=== PATIENT | male | born 1955 | race Caucasian/White ===

== ENCOUNTER 2019-03-13 09:22 | Day surgery (SDC) | payer MEDICARE, BC, OTHER ==
[2019-03-13] MEDS: LACTATED RINGER'S 1,000 ML IV (10:57)
[2019-03-13] MEDS: ACETAMINOPHEN 500 MG TAB PO (10:57)
[2019-03-13] MEDS ORDERED: ONDANSETRON 4 MG INJ (10:58)
[2019-03-13] MEDS ORDERED: ROCURONIUM 50 MG INJ (10:58)
[2019-03-13] MEDS ORDERED: MIDAZOLAM 1 MG/ML 2 ML INJ (10:58)
[2019-03-13] MEDS ORDERED: DEXAMETHASONE 4 MG/ML 5 ML INJ (10:58)
[2019-03-13] MEDS ORDERED: LIDOCAINE 2% (SDV) 5 ML INJ (10:58)
[2019-03-13] MEDS ORDERED: FENTAnyl 50 MCG/ML VIAL (10:58)
[2019-03-13] MEDS ORDERED: FAMOTIDINE 20 MG INJ (10:59)
[2019-03-13] MEDS ORDERED: DESFLURANE 15 MIN (11:00)
[2019-03-13] MEDS ORDERED: CEFAZOLIN 1 GM INJ (11:00)
[2019-03-13] MEDS ORDERED: PROPOFOL 200 MG INJ (11:00)
[2019-03-13] MEDS ORDERED: DIPHENHYDRAMINE 50 MG INJ IV (12:00)
[2019-03-13] MEDS ORDERED: hydrALAzine 20 MG INJ IV (12:00)
[2019-03-13] MEDS ORDERED: ALBUTEROL 0.083% (NEB) 2.5 MG/3 ML AMP HHN (12:00)
[2019-03-13] MEDS ORDERED: FENTAnyl 50 MCG/ML VIAL IV ×2 (12:00)
[2019-03-13] MEDS ORDERED: ONDANSETRON 4 MG INJ IV (12:00)
[2019-03-13] MEDS ORDERED: LABETALOL HCL 20MG INJ IV (12:00)
[2019-03-13] MEDS ORDERED: morphine 2 MG INJ IV ×2 (12:00)
[2019-03-13] MEDS ORDERED: HYDROmorphONE 1 MG/5 ML IV SYRINGE IV ×3 (12:00)
[2019-03-13] MEDS: COCAINE 4% 4 ML TOP (12:06)
[2019-03-13] MEDS: BACITRACIN/POLYMYXIN 28.35 GM OINT TOP (12:06)
[2019-03-13] MEDS: LIDOCAINE 1%/EPI 30 ML INJ (12:07)
[2019-03-13] MEDS ORDERED: GLYCOPYRROLATE 0.4 MG INJ (12:37)
[2019-03-13] MEDS ORDERED: NEOSTIGMINE 3 MG/3 ML SYRINGE (12:37)
[2019-03-13] MEDS: MEPERIDINE 25 MG INJ IV (14:15)
[2019-03-13] MEDS: OXYCODONE/ACETAMINOPHEN (5/325) TAB PO (14:15)
== END 2019-03-13 18:33 | disposition home or self-care (01) ==
LOC: SDS 09:22
DX: J34.2 Deviated nasal septum (principal); J34.3 Hypertrophy of nasal turbinates; J34.89 Other specified disorders of nose and nasal sinuses
CPT/HCPCS: 30140; 88300